=== PATIENT | female | born 1945 | race Caucasian/White ===

== ENCOUNTER → 2020-04-12 | Day surgery (SDC) | payer MEDICARE ==
[~2020-04-12] MED LIST: Propofol 200 MG/20 ML SDV ONE; Sodium Chloride 0.9% 1,000 ML IV SCH; fentaNYL 100 MCG/2 ML SDV ONE
[2020-04-12 09:44] VITALS: BP 152/65; PULSE 47
--- NOTE | 2020-04-13 07:13 | OR ---
DATE OF PROCEDURE: 04/12/2020 SURGEON: James Jeff MD PROCEDURE PERFORMED: Colonoscopy. FINDINGS: 1. Cecal polyp approximately 5 mm, completely removed using cold biopsy forceps. 2. Descending colon polyp approximately 5 mm, completely removed using hot snare wire device. COMPLICATIONS: None. TRAVEL TICKETING REVIEWER: None. ANESTHESIA: MAC. PREOPERATIVE DIAGNOSIS: Screening colonoscopy. POSTOPERATIVE DIAGNOSIS: Screening colonoscopy. RISKS: Risks, benefits, alternatives, and limitations including, but not limited to infection, bleeding, and perforation were explained to the patient who wished to proceed. We also discussed false positives and false negatives. PROCEDURE IN DETAIL: The patient was placed in left lateral decubitus position. Digital rectal exam was performed without abnormality. Scope was introduced and advanced atraumatically to the ileocecal valve. Photos taken. The scope was brought back to the ascending, transverse, descending colon, and retroflexed. The aforementioned polyps were identified and completely removed as described above. No abnormal bleeding was noted after removal. Diverticulosis described as mild, limited to sigmoid colon without evidence of diverticulitis or bleeding. No abnormalities on retroflex. No colitis. No old or new blood. Greater than 10 minutes was spent removing the scope. The patient tolerated the procedure well. James Jeff MD /[id number]
== END ==
LOC: JP.SDS 06:22
PROVIDERS: ATTEND Surgery
DX: Z12.11 Encounter for screening for malignant neoplasm of colon (principal); D12.4 Benign neoplasm of descending colon; D12.0 Benign neoplasm of cecum; K57.30 Diverticulosis of large intestine without perforation or abscess without bleeding; I10 Essential (primary) hypertension
CPT/HCPCS: 45380; 45385; 88305; J2704; J3010; J7030